=== PATIENT | male | born 1960 | race Caucasian/White ===

== ENCOUNTER 2016-12-18 15:51 | Emergency (ER) | payer BC, OTHER ==
[2016-12-18 16:15] VITALS: BP 117/67
[2016-12-18 18:50] LABS: Hematocrit 46 % (42-52); Hemoglobin 15.4 g/dl (14.0-18.0); Mean Corpuscular HGB Conc 33 g/dl (31-36); Mean Corpuscular Hemoglobin 31 pg (27-31); Mean Corpuscular Volume 92 fL (80-94); Mean Platelet Volume 9 um3 (7.4-10.4); Red Blood Count 5.02 10^6/ul (4.0-5.4); Red Cell Distribution Width 13 % (10.5-15); White Blood Count 6.4 10^3/ul (3.5-10.8)
--- NOTE | 2016-12-18 20:03 | UC ---
Mahesh Kimbrough Aidan, scribed for Alice La MD on 12/18/16 at 1631 . FLU HPI - HPI Summary HPI Summary: 56 y/o male presents to the Urgent Care with a complaint of an acute, constant, moderate bulls eye rash on the left axilla area. Associated symptoms include acute, constant, moderate abdominal pain and loose BMs for the past 2 weeks, fatigue, joint pain, ENCISO, ringing in the ears, and teeth pain. He believes that he has Lyme disease, however, he does not recall any known tick exposure. Additionally, he complains of an episode of sharp, mid-sternal CP that radiates up to the jaw. The episode lasted roughly 10 minutes and was described as feeling like "poison". Pt takes Benadryl and melatonin nightly to go to sleep. He denies any allergies to medications. Today, he feels slightly better than he has over the past 2 weeks. Pt already missed the last 2 days of work. Pt also take gabapentin for complex regional pain syndrome in his left wrist. - History of Current Complaint Chief Complaint: UCGeneralIllness Stated Complaint: TICK BITE Time Seen by Provider: 12/18/16 16:18 Hx Obtained From: Patient Onset/Duration: Sudden Onset, Lasting Weeks - Pt noticed the bulls-eye rash today, however, other symptoms began weeks ago (see hpi), Still Present Severity Currently: Moderate Severity Initially: Moderate Pain Intensity: 0 - no current pain ranked Pain Scale Used: 0-10 Numeric Associated Signs & Symptoms: Positive: Headache. Negative: Negative - abdominal pain, loose BMs, fatigue, joint pain, ENCISO, ringing in the ears, teeth pain, episode of CP - Allergy/Home Medications Allergies/Adverse Reactions: Allergies Allergy/AdvReac Type Severity Reaction Status Date / Time No Known Allergies Allergy Verified 12/18/16 16:09 Home Medications: Home Medications Gabapentin CAP(*) [Neurontin 300 CAP(*)] 600 mg 12/18/16 [History] Montelukast Sodium TAB* [Singulair 10 MG TAB*] 12/18/16 [History] PMH/Surg Hx/FS Hx/Imm Hx - Additional Past Medical History Additional PMH: Hx of complex regional pain syndrome in the left hand and wrist Previously Healthy: No - complex regional pain syndrome - Surgical History Surgical History: None - Family History Known Family History: Negative: Cardiac Disease, Hypertension - Social History Occupation: Employed Full-time Lives: With Family Alcohol Use: Daily Substance Use Type: None Smoking Status (MU): Never Smoked Tobacco Review of Systems Constitutional: Fatigue Skin: Rash - erythema migrans left axilla Eyes: Negative ENT: Dental Pain, Other - ringing in the ears Respiratory: Negative Cardiovascular: Chest Pain Gastrointestinal: Abdominal Pain, Diarrhea - loose BMs Genitourinary: Negative Motor: Negative Neurovascular: Negative Musculoskeletal: Arthralgia - joint pain Neurological: Headache Psychological: Negative All Other Systems Reviewed And Are Negative: Yes Physical Exam Triage Information Reviewed: Yes Appearance: Well-Appearing, Well-Nourished, Pain Distress Vital Signs: Initial Vital Signs Temp 98.3 F 12/18/16 16:11 Pulse 66 12/18/16 16:11 Resp 16 12/18/16 16:11 BP 117/67 12/18/16 16:11 Pulse Ox 99 12/18/16 16:11 Vital Signs Reviewed: Yes Eyes: Positive: Conjunctiva Clear ENT Exam: Normal ENT: Positive: Normal ENT inspection. Negative: Muffled/hoarse voice Neck: Positive: Supple, Nontender, No Lymphadenopathy Respiratory: Positive: Lungs clear, Normal breath sounds, No respiratory distress, No accessory muscle use Cardiovascular: Positive: RRR, No Murmur, Pulses Normal, Brisk Capillary Refill Musculoskeletal: Positive: Strength Intact, ROM Intact Neurological: Positive: Alert, Muscle Tone Normal Psychological Exam: Normal Skin: Positive: Other - erythema migrans, 8 cm classic bullseye rash in left axilla. Diagnostics - EKG Cardiac Rate: NL - 66 BPM Cardiac Rhythm: Sinus: Normal - EKG 1639: sinus rhythm 66 bpm, normal av/iv conduction time normal qtc, normal axis, no acute changes Flu Course/Dx - Course Course Of Treatment: 56 y/o male presents with erythema migrans. Associated symptoms include acute, constant, moderate abdominal pain and loose BMs for the past 2 weeks, fatigue, joint pain, ENCISO, ringing in the ears, and teeth pain. His EKG was normal with no acute changes and chest pain has resolved. Chest pain may be associated with Lyme disease. Pt is low risk for ACS associated with ASHD. Will treat pt empirically for Lyme disease with doxycycline 100mg bid x 30 days. Will draw Lyme serology because he has had a few weeks of vague malaise, but if serology is neg, would still continue treatment for Lyme disease , based on the classic bulls eye rash. Patient was informed about the tick twister and was encouraged to purchase one and to wear protective clothing and use insect repellant. - Differential Dx/Diagnosis Differential Diagnosis/HQI/PQRI: Other - Lyme disease viral syndrome Provider Diagnoses: erythema migrans. Lyme disease Discharge - Discharge Plan Condition: Stable Disposition: HOME Prescriptions: DOXYcycline CAP(*) [DOXYcycline 100MG CAP(*)] 100 mg PO BID #60 cap Ondansetron ODT TAB* [Zofran 4 MG Odt TAB*] 4 mg PO Q6H PRN #20 tab.odt PRN Reason: Nausea Patient Education Materials: Lyme Disease (ED) Forms: *Work Release Referrals: Samuel Vaca MD [Medical Doctor] - 3 Days Additional Instructions: We have drawn your blood today. If the serology is negative, Dr. La still believes you have Lyme disease because of the classic bullseye rash. She is treating you empirically with doxycycline 100mg twice a day for 30 days. Have definite follow up with Dr. Vaca on 12/22/16. Call 911 and go to the ER if you have chest pain or worsening symptoms. The documentation as recorded by the Mahesh motley Aidan accurately reflects the service I personally performed and the decisions made by , Alice La MD.
== END 2016-12-18 17:28 | disposition home or self-care (01) ==
LOC: UCEAST 15:51
DX: A26.0 Cutaneous erysipeloid (principal); A69.20 Lyme disease, unspecified; R51 Headache
CPT/HCPCS: 36415; 85025; 86140; 86618; 93005; 99212; G0463